=== PATIENT | female | born 1965 | race Caucasian/White ===

== ENCOUNTER 2021-11-25 04:05 | Day surgery (SDC) | payer OTHER ==
[2021-11-21 16:39] VITALS: BMI 35.6
[2021-11-25] MEDS ORDERED: LIDOCAINE HCL/PF 2% SDV 5ML VIAL ONE (07:52)
[2021-11-25] MEDS ORDERED: MIDAZOLAM HCL 2 MG/2 ML SINGLE DOSE VIAL ONE (07:52)
[2021-11-25] MEDS ORDERED: PROPOFOL 40 ML ONE (07:52)
[2021-11-25] MEDS ORDERED: SUCCINYLCHOLINE CHLORIDE 200 MG/10 ML SYRINGE ONE (07:53)
[2021-11-25] MEDS ORDERED: oxyCODONE HCL 5 MG TABLET PO PRN ×2 (08:49→10:18)
[2021-11-25] MEDS ORDERED: ONDANSETRON 4 MG/2 ML VIAL IVPUSH PRN ×2 (08:49→10:18)
[2021-11-25] MEDS ORDERED: LACTATED RINGERS SOLUTION 1,000 ML IV SCH (09:00)
[2021-11-25] MEDS ORDERED: METOPROLOL TARTRATE 5 MG/5 ML VIAL ONE (09:51)
[2021-11-25] MEDS ORDERED: IBUPROFEN 600 MG TABLET (FP) PO PRN (10:18)
[2021-11-25] MEDS ORDERED: IBUPROFEN 800 MG/8 ML IJ IVPB PRN (10:18)
[2021-11-25] MEDS ORDERED: ELECTROLYTE-148 SOLN 1,000 ML IV SCH (10:30)
[2021-11-25 11:35] VITALS: RESP 20
[2021-11-25 13:13] VITALS: BP 137/79; PULSE 65; TEMP 98
== END 2021-11-25 12:50 | disposition home or self-care (01) ==
LOC: JASU-SURG 04:05
PROVIDERS: ATTEND Obstetrics & Gynecology
PROC: 0UJD8ZZ Inspection of Uterus and Cervix, Via Natural or Artificial Opening Endoscopic (ICD-10-PCS; 2021-11-25)
PROC: 0UDB7ZX Extraction of Endometrium, Via Natural or Artificial Opening, Diagnostic (ICD-10-PCS; principal; 2021-11-25 09:00)
DX: N95.0 Postmenopausal bleeding (principal)
CPT/HCPCS: 82962; 88305-TC; 94760

== ENCOUNTER 2022-09-04 11:35 | Emergency (ER) | payer OTHER ==
[2022-09-04 11:50] VITALS: BP 164/76; PULSE 82; RESP 18; TEMP 98.1; BMI 35.5
[2022-09-04] MEDS ORDERED: KETOROLAC TROMETHAMINE 30 MG/1 ML VIAL IM ONE (12:56)
[2022-09-04] MEDS ORDERED: CYCLOBENZAPRINE HCL 10 MG TABLET (FP) PO ONE (12:56)
[2022-09-04] MEDS ORDERED: KETOROLAC TROMETHAMINE 30 MG/1 ML VIAL ONE (12:57)
[2022-09-04] MEDS ORDERED: CYCLOBENZAPRINE HCL 10 MG TABLET (FP) ONE (12:57)
== END 2022-09-04 13:56 | disposition home or self-care (01) ==
LOC: JERFT 11:35 → JER 11:35 → JERFT 13:56
PROC: 3E0233Z Introduction of Anti-inflammatory into Muscle, Percutaneous Approach (ICD-10-PCS; principal; 2022-09-04)
DX: M54.6 Pain in thoracic spine (principal); X50.0XXA Overexertion from strenuous movement or load, initial encounter
CPT/HCPCS: 72070-TC-FY; 72100-TC-FY; 99284-25

== ENCOUNTER 2023-11-27 11:51 | Emergency (ER) | payer OTHER ==
[2023-11-27 12:24] VITALS: BP 130/84; PULSE 88; RESP 18; TEMP 97.7; BMI 33.1
[2023-11-27] MEDS ORDERED: ONDANSETRON *ODT* 4 MG TABLET ONE (12:55)
[2023-11-27] MEDS: ONDANSETRON *ODT* 4 MG TABLET SL ONE (12:57)
== END 2023-11-27 13:09 | disposition home or self-care (01) ==
LOC: FER 11:51
DX: R11.2 Nausea with vomiting, unspecified (principal); R19.7 Diarrhea, unspecified
CPT/HCPCS: 99283-25; Q0162